=== PATIENT | female | born 1950 | race Caucasian/White ===

== ENCOUNTER 2016-12-07 10:36 | Day surgery (SDC) | payer MEDICARE, OTHER ==
[2016-12-03 11:59] LABS: BASOPHILS 0.2 %; BASOPHILS ABSOLUTE 0.01 10/3/uL (0.0-0.16); EOSINOPHILS 1.8 %; EOSINOPHILS ABSOLUTE 0.12 10/3/uL (0.0-0.53); HEMATOCRIT 40.8 % (36.0-48.0); HEMOGLOBIN 13.6 g/dL (12.0-16.0); IMMATURE GRANULOCYTES 0.2 %; IMMATURE GRANULOCYTES ABSOLUTE 0.01 10/3/uL (0.0-0.11); LYMPHOCYTES 23.8 %; LYMPHOCYTES ABSOLUTE 1.55 10/3/uL (0.67-4.30); MEAN CORPUS HGB CONC 33.3 g/dL (32.0-36.0); MEAN CORPUSCULAR HEMOGLOB 28.9 pg (26.0-34.0); MEAN CORPUSCULAR VOLUME 86.6 fL (80-100); MEAN PLATELET VOLUME 9.1 fL (9.2-13.0); MONOCYTES 5.7 %; MONOCYTES ABSOLUTE 0.37 10/3/uL (0.21-1.20); NEUTROPHILS 68.3 %; NEUTROPHILS ABSOLUTE 4.44 10/3/uL (2.02-8.40); PLATELET COUNT 254 10/3/uL (150-400); RBC DISTRIBUTION WIDTH 13.4 % (12.0-16.0); RED CELL COUNT 4.71 10/6/uL (4.0-5.6); WHITE BLOOD CELLS 6.5 10/3/uL (4.5-10.5)
[2016-12-03 12:00] LABS: MANUAL DIFF NO %
[~2016-12-07] VITALS: Ht 162.6 cm; Wt 75.7 kg
--- NOTE | ~2016-12-07 | OP ---
Record Of Operation [facility] [address] [place]. [address] NAME: JERAMY PRICE : 52 STATUS : [facility]#: [id number] AGE: 66 ADM/REG DATE : 12/07/16 MR#: [id number] REPORT SERV DATE: 12/07/16 DICTATED BY: KONSTANTIN ATWOOD DATE: 12/07/16 REPORT STATUS : Draft TRANSCRIBED BY: MODL DATE: 12/07/16 DATE OF PROCEDURE: 12/07/2016 OPERATIVE PROCEDURE: Hysteroscopy, dilation and curettage, removal of an endometrial polyp using the Truclear device, CPT code 13140. PREOPERATIVE DIAGNOSES: 1. Endometrial polyp, N84.0. 2. Postmenopausal bleeding, N95.0. POSTOPERATIVE DIAGNOSES: 1. Endometrial polyp, N84.0. 2. Postmenopausal bleeding, N95.0. ANESTHESIA: General anesthetic. FINDINGS: The uterus was normal size by examination under anesthesia and no adnexal enlargement was noted. At the D and C, the uterus sounded to 8 cm. Within the endometrial cavity was a solitary prominent polypoid structure, approximately 1-2 cm in size attached to the posterior fundal surface of the uterus. No other focal lesions were present and both tubal ostia were seen. DESCRIPTION OF PROCEDURE: The patient was placed on the operating table in the supine position. After satisfactory general anesthesia, patient was placed in lithotomy in Carlos [place] stirrups. The perineum and vagina were prepped, and the patient was draped in the usual fashion. A weighted speculum was placed in the vagina and the anterior lip of the cervix was grasped with a single-tooth tenaculum. The cervix was dilated to 10 mm. The uterus sounded to 8 cm. The Truclear hysteroscope was inserted and the uterus distended. Photographs were made of the endometrial cavity which showed a solitary polyp attached to the posterior wall of the uterus with no other focal lesions, both tubal ostia were seen. The polyp excising device was inserted, and after getting device in proper position, the polyp was removed gradually with the device until the entire polyp was removed down to its base at the endometrial junction. At this time, an additional photograph was made. The endometrium was otherwise atrophic and no other focal lesions were seen. The hysteroscope was removed, a sharp curettage was performed, and the uterus explored with polyp forceps; however, no additional tissue was obtained. The polypoid tissue was submitted to the pathologist. At this time, the tenaculum was removed from the cervix and all instruments were removed from the vagina. The patient returned to the supine position. The estimated blood loss was 50 mL. The fluid deficit was 110 mL. The patient was awakened from general anesthesia and transferred to recovery in good condition. JUANITA/ALFIEL Konstantin Record Of Operation [address] [address] NAME: JERAMY PRICE : 52 STATUS : [facility] PAT#: [id number] AGE: 66 ADM/REG DATE : 12/07/16 MR#: [id number] REPORT SERV DATE: 12/07/16 DICTATED BY: KONSTANTIN ATWOOD DATE: 12/07/16 REPORT STATUS : Draft TRANSCRIBED BY: TAMARA DATE: 12/07/16 Abhilash Atwood MD / [id number] CC: MD Chanel Dodd MD
[~2016-12-07 10:36] MED LIST: MINIVELLE1 EACH TOP; PROMETRIUM200 MG PO
== END 2016-12-07 16:40 | disposition home or self-care (01) ==
LOC: SDC 10:36
PROVIDERS: Obstetrics & Gynecology
PROC: 0UDB8ZZ Extraction of Endometrium, Via Natural or Artificial Opening Endoscopic (ICD-10-PCS; 2016-12-07)
PROC: 0UB98ZX Excision of Uterus, Via Natural or Artificial Opening Endoscopic, Diagnostic (ICD-10-PCS; principal; 2016-12-07 12:15)
DX: N85.00 Endometrial hyperplasia, unspecified (principal); N95.0 Postmenopausal bleeding; Z90.49 Acquired absence of other specified parts of digestive tract; Z90.89 Acquired absence of other organs; Z79.818 Long term (current) use of other agents affecting estrogen receptors and estrogen levels; Z79.899 Other long term (current) drug therapy; Z98.890 Other specified postprocedural states
CPT/HCPCS: 85025; 88305; 93005; J1885; J2250; J2405; J2710; J3010